=== PATIENT | female | born 1935 | race Caucasian/White ===

== ENCOUNTER 2018-02-12 11:20 | Emergency (ER) | payer MEDICARE ==
[~2018-02-12] VITALS: Ht 165.1 cm; Wt 59.0 kg
[~2018-02-12 11:20] MED LIST: ATOR20TA66 PO; CALCIUM PO; CARV-50 PO; FLUT1DIS INH; LISI2.5T2 PO; NITR0.4T48 SL; PANT40TA4 PO; TICA90TA PO
[2018-02-12 12:16] LABS: ALANINE AMINOTRANSFERASE 27 U/L (12-78); ALBUMIN 3.6 G/DL (3.4-5.0); ALKALINE PHOSPHATASE 55 IU/L (46-116); ANION GAP 12 (8-16); ASPARTATE AMINO TRANSFERASE 21 U/L (10-37); BILIRUBIN,TOTAL 0.6 MG/DL (0.1-1.0); BLOOD UREA NITROGEN 17 MG/DL (7-18); BUN/CREATININE RATIO 19.8 (6.6-38.0); CALCIUM 8.8 MG/DL (8.5-10.1); CHLORIDE 101 MMOL/L (99-107); CREATININE 0.86 MG/DL (0.40-0.90); GLUCOSE 102 MG/DL (70-104); POTASSIUM 4.2 MMOL/L (3.5-5.1); SODIUM 138 MMOL/L (135-145); TOTAL CARBON DIOXIDE 24.8 MMOL/L (24-32); TOTAL PROTEIN 7.1 G/DL (6.4-8.2); eGFR 63 ML/MIN
[2018-02-12 12:21] LABS: BASOPHILS % (AUTO) 0.3 % (0-1); EOSINOPHILS # (AUTO) 0.2 X10'3 (0-0.9); HEMATOCRIT 39.4 % (35.0-45.0); HEMOGLOBIN 12.9 g/dl (12.0-16.0); LYMPHOCYTES # (AUTO) 0.7 X10'3 (1.1-4.8); LYMPHOCYTES % (AUTO) 10.8 % (21-51); MEAN CORPUSCULAR HEMOGLOBIN 30.3 PG (27.0-31.0); MEAN CORPUSCULAR HGB CONC 32.8 % (33.0-36.5); MEAN CORPUSCULAR VOLUME 92.4 FL (78-98); MEAN PLATELET VOLUME 7.5 FL (7.4-10.4); MONOCYTES # (AUTO) 0.6 X10'3 (0-0.9); MONOCYTES % (AUTO) 8.5 % (2-12); NEUTROPHILS # (AUTO) 5.1 X10'3 (1.8-7.7); NEUTROPHILS % (AUTO) 77.4 % (42-75); PLATELET COUNT 192 X10'3 (140-440); RED BLOOD COUNT 4.27 X10'6 (4.20-5.60); RED CELL DISTRIBUTION WIDTH 15.5 % (11.5-14.5); WHITE BLOOD COUNT 6.6 X10'3 (4.5-11.0)
[2018-02-12] MEDS ORDERED: TAM75C PO (12:43)
[2018-02-12] MEDS ORDERED: LEVO750T21 PO (12:43)
[2018-02-12 13:02] VITALS: BP 129/56
== END 2018-02-12 13:05 | disposition home or self-care (01) ==
LOC: ER 11:20
DX: B34.9 Viral infection, unspecified (principal); J45.909 Unspecified asthma, uncomplicated; I25.10 Atherosclerotic heart disease of native coronary artery without angina pectoris; Z98.61 Coronary angioplasty status; Z90.49 Acquired absence of other specified parts of digestive tract; Z90.710 Acquired absence of both cervix and uterus; Z88.8 Allergy status to other drugs, medicaments and biological substances; Z79.2 Long term (current) use of antibiotics; Z79.899 Other long term (current) drug therapy
CPT/HCPCS: 36415; 71045; 80053; 83605; 84484; 85025; 87040; 93005; 99284

== ENCOUNTER 2018-03-03 10:03 | Outpatient (CLI) | payer MEDICARE ==
[~2018-03-03] VITALS: Ht 165.1 cm; Wt 69.4 kg
[~2018-03-03 10:03] MED LIST changes: +TAM75C PO
[2018-03-03 12:04] LABS: BASOPHILS % (AUTO) 0.8 % (0-1); EOSINOPHILS # (AUTO) 0.3 X10'3 (0-0.9); EOSINOPHILS % (AUTO) 6.8 % (0-6); LYMPHOCYTES # (AUTO) 0.9 X10'3 (1.1-4.8); LYMPHOCYTES % (AUTO) 18.5 % (21-51); MEAN CORPUSCULAR HGB CONC 32.3 % (33.0-36.5); MONOCYTES # (AUTO) 0.4 X10'3 (0-0.9); MONOCYTES % (AUTO) 7.3 % (2-12); NEUTROPHILS # (AUTO) 3.5 X10'3 (1.8-7.7); NEUTROPHILS % (AUTO) 66.6 % (42-75); PRE OP HEMATOCRIT 38.5 % (35.0-45.0); PRE OP HEMOGLOBIN 12.4 g/dL (12.0-16.0); PRE OP PLATELET COUNT 247 X10'3 (140-440); RED BLOOD COUNT 4.14 X10'6 (4.20-5.60); RED CELL DISTRIBUTION WIDTH 14.3 % (11.5-14.5)
[2018-03-03 12:07] LABS: PRE OP PROTIME 9.8 SECONDS (9.0-12.0)
[2018-03-03] MEDS ORDERED: [UNRECOGNIZED DRUG - REMARK] PO (12:08)
[2018-03-03] MEDS ORDERED: ATOR20TA PO (12:08)
[2018-03-03] MEDS ORDERED: ASPI-147 PO (12:08)
[2018-03-03] MEDS ORDERED: FURO-150 PO (12:08)
[2018-03-03] MEDS ORDERED: ESTR0.6261 PO (12:08)
[2018-03-03] MEDS ORDERED: ISOS30TA6 PO (12:08)
[2018-03-03] MEDS ORDERED: TICA60TA PO (12:08)
[2018-03-03] MEDS ORDERED: PANT-47 PO (12:08)
[2018-03-03] MEDS ORDERED: MAGN500C16 PO (12:08)
[2018-03-03] MEDS ORDERED: ASPI-611 PO (12:08)
[2018-03-03 12:17] LABS: ALBUMIN 3.6 G/DL (3.4-5.0); ALBUMIN/GLOBULIN RATIO 1.1 (1.1-1.5); ALKALINE PHOSPHATASE 50 IU/L (46-116); BLOOD UREA NITROGEN 19 MG/DL (7-18); CALCIUM 8.7 MG/DL (8.5-10.1); CHLORIDE 105 MMOL/L (99-107); CREATININE 0.95 MG/DL (0.40-0.90); PRE OP ALT 25 U/L (30-65); PRE OP ANION GAP 8 (8-16); PRE OP AST 16 U/L (10-37); PRE OP BILIRUB, TOTAL 0.6 MG/DL (0.0-1.0); PRE OP GLUCOSE 95 MG/DL (70-104); PRE OP POTASSIUM 4.1 MMOL/L (3.4-5.1); PRE OP SODIUM 140 MMOL/L (135-145); TOTAL CARBON DIOXIDE 26.7 MMOL/L (24-32); eGFR 56 ML/MIN
[2018-03-09] MEDS ORDERED: ringers solution, lacted 1,000 ML IV SCH (05:00)
[2018-03-09] MEDS ORDERED: VANCOMYCIN INJ 1000 MG in NORMAL SALINE 250ml IV.SOLN IV ONE (05:30)
[2018-03-09] MEDS ORDERED: cefazolin/dext.iso 2gm/100 ML IV ONE (05:30)
[2018-03-09] MEDS ORDERED: DOCUMENT DATE & TIME OF BETA-BLOCKER PO ONE (05:30)
[2018-03-09] MEDS ORDERED: famotidine 20mg tablet PO ONE (05:30)
[2018-03-09] MEDS ORDERED: tranexamic acid inj. 1,000 MG in normal saline 100 ML IV ONE (05:30)
[2018-03-09] MEDS ORDERED: LIDOcaine 1% (10mg/ml)w/preservative injection 20ml MDV ONE (14:17)
[2018-03-09] MEDS ORDERED: iohexol 350 MG/ML 50ML vial IV ONE (14:17)
[2018-03-09] MEDS ORDERED: nitroGLYCERIN-Tridil 50MG/D5W 250 ML IV ONE (14:17)
[2018-03-09] MEDS ORDERED: heparin 1,000unit/ml 10ml vial 10 ML ONE (14:17)
[2018-03-09] MEDS ORDERED: midazolam 2 mg/2 ml injection ONE (14:17)
[2018-03-09] MEDS ORDERED: iohexol 350 MG/1 ML 200ml bottle ONE (14:17)
[2018-03-09] MEDS ORDERED: fentaNYL/PF 50MCG/1 ML 2ML syringe ONE (14:17)
[2018-03-10] MEDS ORDERED: LISI-642 PO (14:47)
[2018-03-10] MEDS ORDERED: CARV-50 PO (14:47)
[2018-03-10] MEDS ORDERED: ASPI-1265 PO (14:47)
[2018-03-10] MEDS ORDERED: ATOR20TA66 PO (14:47)
[2018-03-10] MEDS ORDERED: CLOP75TA33 PO (14:47)
[2018-03-10] MEDS ORDERED: NITR0.4T51 SL (15:43)
== END 2018-03-03 23:59 | disposition home or self-care (01) ==
LOC: PRE-OP 10:03 → EDSTATUS 03-09 11:15
PROVIDERS: ATTEND Orthopaedic Surgery
DX: Z01.818 Encounter for other preprocedural examination (principal); M16.12 Unilateral primary osteoarthritis, left hip
CPT/HCPCS: 36415; 80053; 85025; 85610; 85730; 86885; 86900; 86901; 86920; 87070; J0690; J1644; J2001; J2250; J3010; J3370; J3490; J7030; J7120; Q9967

== ENCOUNTER 2018-03-08 11:25 | Inpatient (IN) | payer MEDICARE | END 2018-03-10 17:18 | disposition home or self-care (01) | LOC: ER 11:25 → ED HOLD 13:07 → MED 3N 15:45 | PROC: 4A023N7 Measurement of Cardiac Sampling and Pressure, Left Heart, Percutaneous Approach (ICD-10-PCS; principal; ~2018-03-08) | DX: I21.4 Non-ST elevation (NSTEMI) myocardial infarction (principal); K29.70 Gastritis, unspecified, without bleeding ==

== ENCOUNTER 2019-03-02 14:35 | Emergency (ER) | payer MEDICARE ==
[~2019-03-02] VITALS: Ht 167.6 cm; Wt 77.0 kg
[~2019-03-02 14:35] MED LIST changes: +ALBU8.5H8 INH; +ANTIDIARRHEAL PO; -ATOR20TA66 PO; -CALCIUM PO; +CLOP75TA15 PO; +ESTR0.6261 PO; -FLUT1DIS INH; +FLUT1DIS4 INH; +FURO-150 PO; +HYDR-4383 PO; +ISOS30TA6 PO; +LIDOcaine 1% W/epiNEPHrine 1:100,000 20ml vial ONE; -LISI2.5T2 PO; +LOSA25TA96 PO; -NITR0.4T48 SL; +PANT-47 PO; -PANT40TA4 PO; -TAM75C PO; -TICA90TA PO; +TRAZ-256 PO
--- NOTE | 2019-03-02 17:45 | NUR ---
PT WAS CO LEAVING AMA, PT WANT TO HAVE CT READ AND GO HOME. PT BROUGHT BACK TO FAST TRACK. PT IS CURRENTLY ON PLAVIX AND ASA 81 MG DAILY.
[2019-03-02] MEDS ORDERED: carVEDilol 12.5mg tablet PO ONE (18:50)
--- NOTE | 2019-03-02 19:03 | NUR ---
Patient's lac was injected with lidocaine by DAVID Thornton. Patient tolerated well. Patient given Coreg 12.5 medication for HTN. Patient did not take her morning med because she states it makes her fuzzy. Patient is AAOX4
[2019-03-02 19:22] VITALS: BP 198/73
== END 2019-03-02 19:25 | disposition home or self-care (01) ==
LOC: ER 14:35
DX: S01.01XA Laceration without foreign body of scalp, initial encounter (principal); I25.10 Atherosclerotic heart disease of native coronary artery without angina pectoris; J45.909 Unspecified asthma, uncomplicated; Z98.61 Coronary angioplasty status; Z90.49 Acquired absence of other specified parts of digestive tract; Z90.710 Acquired absence of both cervix and uterus; Z88.8 Allergy status to other drugs, medicaments and biological substances; Z79.899 Other long term (current) drug therapy; W22.8XXA Striking against or struck by other objects, initial encounter; Y93.89 Activity, other specified; Y92.89 Other specified places as the place of occurrence of the external cause; Y99.8 Other external cause status
CPT/HCPCS: 12001; 70450; 99284

== ENCOUNTER 2019-09-13 13:20 | Outpatient (CLI) | payer MEDICARE ==
[~2019-09-13 13:20] MED LIST changes: -ANTIDIARRHEAL PO; +ASPI-611 PO; -HYDR-4383 PO; -LIDOcaine 1% W/epiNEPHrine 1:100,000 20ml vial ONE; +MAGN500C16 PO
[2019-09-13] MEDS ORDERED: LIDOcaine 2% 5ml jelly ONE (14:18)
== END 2019-09-13 15:20 | disposition home or self-care (01) ==
LOC: EDSTATUS 13:20 → WOUND CARE 13:20
PROVIDERS: ATTEND Nurse Practitioner Family
DX: L97.212 Non-pressure chronic ulcer of right calf with fat layer exposed (principal); I25.10 Atherosclerotic heart disease of native coronary artery without angina pectoris; K21.9 Gastro-esophageal reflux disease without esophagitis; M19.90 Unspecified osteoarthritis, unspecified site; H26.9 Unspecified cataract; I10 Essential (primary) hypertension; J45.909 Unspecified asthma, uncomplicated; Z79.02 Long term (current) use of antithrombotics/antiplatelets; Z79.82 Long term (current) use of aspirin; Z79.51 Long term (current) use of inhaled steroids; Z79.899 Other long term (current) drug therapy; Z95.5 Presence of coronary angioplasty implant and graft; Z96.642 Presence of left artificial hip joint; Z87.891 Personal history of nicotine dependence; Z86.11 Personal history of tuberculosis; Z90.710 Acquired absence of both cervix and uterus; Z90.49 Acquired absence of other specified parts of digestive tract
CPT/HCPCS: 97606

== ENCOUNTER 2019-10-18 08:53 | Day surgery (SDC) | payer MEDICARE ==
[2019-10-18] MEDS ORDERED: LIDOcaine 2% 5ml jelly ONE ×2 (09:10)
== END 2019-10-18 10:40 | disposition home or self-care (01) ==
LOC: WOUND CARE 08:53
PROVIDERS: ATTEND Nurse Practitioner
DX: S81.801D Unspecified open wound, right lower leg, subsequent encounter (principal); L97.212 Non-pressure chronic ulcer of right calf with fat layer exposed; I25.10 Atherosclerotic heart disease of native coronary artery without angina pectoris; K21.9 Gastro-esophageal reflux disease without esophagitis; M19.90 Unspecified osteoarthritis, unspecified site; H26.9 Unspecified cataract; I10 Essential (primary) hypertension; J45.909 Unspecified asthma, uncomplicated; Z79.02 Long term (current) use of antithrombotics/antiplatelets; Z79.82 Long term (current) use of aspirin; Z79.51 Long term (current) use of inhaled steroids; Z79.899 Other long term (current) drug therapy; Z95.5 Presence of coronary angioplasty implant and graft; Z96.642 Presence of left artificial hip joint; Z87.891 Personal history of nicotine dependence; Z86.11 Personal history of tuberculosis; Z90.710 Acquired absence of both cervix and uterus; Z90.49 Acquired absence of other specified parts of digestive tract; X58.XXXD Exposure to other specified factors, subsequent encounter
CPT/HCPCS: 15271; 15272; Q4101

== ENCOUNTER 2019-11-03 14:23 | Day surgery (SDC) | payer MEDICARE ==
[~2019-11-03 14:23] MED LIST changes: +FLAX10007 PO
[2019-11-03] MEDS ORDERED: LIDOcaine 2% 5ml jelly ONE ×2 (14:42)
== END 2019-11-03 15:18 | disposition home or self-care (01) ==
LOC: WOUND CARE 14:23
PROVIDERS: ATTEND Nurse Practitioner
DX: S81.801D Unspecified open wound, right lower leg, subsequent encounter (principal); I83.012 Varicose veins of right lower extremity with ulcer of calf; L97.212 Non-pressure chronic ulcer of right calf with fat layer exposed; I25.10 Atherosclerotic heart disease of native coronary artery without angina pectoris; K21.9 Gastro-esophageal reflux disease without esophagitis; M19.90 Unspecified osteoarthritis, unspecified site; H26.9 Unspecified cataract; I10 Essential (primary) hypertension; J45.909 Unspecified asthma, uncomplicated; Z79.02 Long term (current) use of antithrombotics/antiplatelets; Z79.82 Long term (current) use of aspirin; Z79.51 Long term (current) use of inhaled steroids; Z79.899 Other long term (current) drug therapy; Z95.5 Presence of coronary angioplasty implant and graft; Z96.642 Presence of left artificial hip joint; Z87.891 Personal history of nicotine dependence; Z86.11 Personal history of tuberculosis; Z90.710 Acquired absence of both cervix and uterus; Z90.49 Acquired absence of other specified parts of digestive tract; W22.8XXD Striking against or struck by other objects, subsequent encounter
CPT/HCPCS: 97597; 97598

== ENCOUNTER 2019-11-10 09:54 | Day surgery (SDC) | payer MEDICARE ==
[~2019-11-10] VITALS: Ht 165.1 cm; Wt 73.8 kg
[2019-11-10] VITALS (15 sets, daily range): BP systolic 145–174; BP diastolic 62–81
[~2019-11-10 09:54] MED LIST changes: +BUPIVAcaine/PF 2.5 mg/ml (0.25%) 30ml vial ONE; +DOCUMENT DATE & TIME OF BETA-BLOCKER PO ONE; +cefazolin/dext.iso 2gm/50ml 50 ML IV ONE; +famotidine 20mg tablet PO ONE; +ringers solution, lacted 1,000 ML IV SCH
[2019-11-10 11:01] LABS: ISTAT CREATININE 0.8 mg/dL (0.6-1.1); ISTAT HGB 13.3 g/dl (12.0-16.0); ISTAT IONIZED CALCIUM 1.31 mmol/L (1.03-1.32); ISTAT K 4.3 mmol/L (3.5-5.1); POC BUN/CREATININE RATIO 18.8 (6.6-38.0)
[2019-11-10 11:01] LABS: CLARITY,URINE SLIGHTLY CLOUDY (Clear); COLOR,URINE YELLOW (Yellow); GLUCOSE, URINE NEGATIVE (Neg); KETONES,URINE NEGATIVE (Neg); LEUKOCYTE ESTERASE ,URINE SMALL (Neg); NITRITES, URINE NEGATIVE (Neg); OCCULT BLOOD,URINE SMALL (Neg); PH,URINE 5.5 (4.8-8.0); PROTEIN,URINE 30 mg/dl (Neg); UROBILINOGEN,URINE 0.2 E.U/dL (0.2-1.0)
[2019-11-10 11:10] LABS: UA COLLECTION TYPE NON-SPECIFIED
[2019-11-10 11:11] LABS: MUCUS STRANDS FEW /LPF (Neg); SQUAMOUS EPITHELIAL CELL,UR FEW /LPF (FEW)
[2019-11-10 11:12] LABS: BACTERIA,URINE 1+ /HPF (Neg); RBC,URINE 0-2 /HPF (0-2); WBC CLUMPS,URINE MANY /HPF (NEGATIVE); WBC,URINE TNTC /HPF (0-4)
--- NOTE | 2019-11-10 11:36 | NUR ---
Dr. Sousa aware of covid test being negative 15 days ago. Ok'd use of result. Reviewed current symptoms, patient negative for any signs of covid as well as she has avoided crowded areas and gatherings.
[2019-11-10] MEDS ORDERED: ciprofloxacin lact 400MG/200ML 200 ML IV ONE (11:55)
--- NOTE | 2019-11-10 12:27 | NUR ---
Dr. Grady notified of patient's positive urine, order received for cipro, given. At Dr. Grady's request, Jesusita in wound care contacted and she said she will contact the patient and follow up on the urine culture Friday.
[2019-11-10] MEDS ORDERED: NITR0.4T48 SL (12:31)
[2019-11-10] MEDS ORDERED: NITR0.4T51 SL (12:35)
[2019-11-10] MEDS ORDERED: mineral oil 10ml sterile, topical TP ONE (13:35)
[2019-11-10] MEDS ORDERED: LIDOcaine 1% w/epiNEPHrine 1:200,000 30ml vial ONE (13:49)
[2019-11-10] MEDS ORDERED: sevoflurane 250ml liquid IH ONE (14:12)
[2019-11-10] MEDS ORDERED: midazolam 2 mg/2 ml injection ONE (14:20)
[2019-11-10] MEDS ORDERED: fentaNYL/PF 50MCG/1 ML 2ML syringe ONE (14:20)
[2019-11-10] MEDS ORDERED: dexamethasone sod phosphate 4mg/ml inj. ONE (14:33)
[2019-11-10] MEDS ORDERED: LIDOcaine 2% (20mg/ml) 5ml vial ONE (14:33)
[2019-11-10] MEDS ORDERED: ondansetron/PF 4mg/2ml inj ONE (14:34)
[2019-11-10] MEDS ORDERED: propofol inj 20 ML IV ONE (14:34)
[2019-11-10] MEDS ORDERED: ringers solution, lacted 1,000 ML IV SCH (15:28)
--- NOTE | 2019-11-10 15:28 | NUR ---
Received from OR via [facility], accompanied by Anesthesiologist Shane and report given by Anesthesiolgist. All VS WNL and sats 100% at 10L. Wound vac to right lower leg with good suction, and left anterior thigh with gauze over dressing with tegarderm. All CDI. 20G IVF LR running 100cc/hr.
[2019-11-10] MEDS ORDERED: meperidine/PF 25mg/ml syringe IV PRN ×3 (15:30)
[2019-11-10] MEDS ORDERED: morphine 2 MG/ML inj. syringe IV PRN (15:30)
[2019-11-10] MEDS ORDERED: proCHLORperazine 10 MG/2 ml inj IV PRN (15:30)
[2019-11-10] MEDS ORDERED: morphine 4 MG/ML inj SYRINge IV PRN (15:30)
[2019-11-10] MEDS ORDERED: ondansetron/PF 4mg/2ml inj IV PRN (15:30)
[2019-11-10] MEDS ORDERED: acetaminophen 1,000mg/100ml IV 100 ML IV ONE (15:55)
[2019-11-10] MEDS ORDERED: labetalol 20mg/4ml (5mg/ml) syringe IV ONE (16:15)
--- NOTE | 2019-11-10 16:38 | NUR ---
Pt occasionally drops sats from 98% to 88%, but no other changes in symptoms or LOC. Reminded to take deep breaths frequently and given extensive eduction on respiratory care including the use of IS. Pt verbalized understanding of all instructions. Will continue to encourage pulmonary activity.
--- NOTE | 2019-11-10 17:20 | NUR ---
Pt greatly improved on consistently keeping sats above 95%, fully understands importance of using IS and is doing so frequently. Pt has ambulated, tolerated fluids and food, getting dressed without any issues or changes in VS.
--- NOTE | 2019-11-10 17:38 | NUR ---
Pt discharged in her own belongings/clothing, to her vehicle without incident. IV DC'd. All dressings and wound vac remain CDI and good seal. Pt and family received extensive education on DC instructions r/t wounds, dressings, wound vac and materials, respiratory care, pain medications and what to do if complications arise. I also explained that the urine culture results would be followed up with by wound care on Friday. Appointment already made for patient to see wound care. All other questions answered.
== END 2019-11-10 17:38 | disposition home or self-care (01) ==
LOC: PAS 09:54
PROVIDERS: ATTEND Surgery
DX: T81.89XA Other complications of procedures, not elsewhere classified, initial encounter (principal); I25.10 Atherosclerotic heart disease of native coronary artery without angina pectoris; K21.9 Gastro-esophageal reflux disease without esophagitis; M19.90 Unspecified osteoarthritis, unspecified site; Z87.891 Personal history of nicotine dependence; Z72.89 Other problems related to lifestyle; Z86.11 Personal history of tuberculosis; Z96.642 Presence of left artificial hip joint; Z88.8 Allergy status to other drugs, medicaments and biological substances; Z88.1 Allergy status to other antibiotic agents; Z79.899 Other long term (current) drug therapy; Z82.49 Family history of ischemic heart disease and other diseases of the circulatory system; Z82.3 Family history of stroke; Z83.6 Family history of other diseases of the respiratory system; Y83.8 Other surgical procedures as the cause of abnormal reaction of the patient, or of later complication, without mention of misadventure at the time of the procedure; Y92.89 Other specified places as the place of occurrence of the external cause
CPT/HCPCS: 15100; 80047; 81001; 87077; 87088; 87186; A6223; J0131; J0744; J1100; J2001; J2175; J2250; J2405; J2704; J3010; J3490; A4618; A6258; A6449; A6550; A7000; J7120

== ENCOUNTER 2019-11-18 10:45 | Outpatient (CLI) | payer MEDICARE ==
[~2019-11-18 10:45] MED LIST changes: -BUPIVAcaine/PF 2.5 mg/ml (0.25%) 30ml vial ONE; -DOCUMENT DATE & TIME OF BETA-BLOCKER PO ONE; +NITR0.4T48 SL; +NITR0.4T51 SL; -cefazolin/dext.iso 2gm/50ml 50 ML IV ONE; -famotidine 20mg tablet PO ONE; -ringers solution, lacted 1,000 ML IV SCH
== END 2019-11-18 12:30 | disposition home or self-care (01) ==
LOC: WOUND CARE 10:45
PROVIDERS: ATTEND Nurse Practitioner
DX: T86.828 Other complications of skin graft (allograft) (autograft) (principal); T81.89XD Other complications of procedures, not elsewhere classified, subsequent encounter; I83.012 Varicose veins of right lower extremity with ulcer of calf; L97.212 Non-pressure chronic ulcer of right calf with fat layer exposed; I25.10 Atherosclerotic heart disease of native coronary artery without angina pectoris; K21.9 Gastro-esophageal reflux disease without esophagitis; M19.90 Unspecified osteoarthritis, unspecified site; H26.9 Unspecified cataract; I10 Essential (primary) hypertension; J45.909 Unspecified asthma, uncomplicated; Z79.02 Long term (current) use of antithrombotics/antiplatelets; Z79.82 Long term (current) use of aspirin; Z79.51 Long term (current) use of inhaled steroids; Z79.899 Other long term (current) drug therapy; Z95.5 Presence of coronary angioplasty implant and graft; Z96.642 Presence of left artificial hip joint; Z87.891 Personal history of nicotine dependence; Z86.11 Personal history of tuberculosis; Z90.710 Acquired absence of both cervix and uterus; Z90.49 Acquired absence of other specified parts of digestive tract; Y83.2 Surgical operation with anastomosis, bypass or graft as the cause of abnormal reaction of the patient, or of later complication, without mention of misadventure at the time of the procedure; Y83.8 Other surgical procedures as the cause of abnormal reaction of the patient, or of later complication, without mention of misadventure at the time of the procedure
CPT/HCPCS: 97605

== ENCOUNTER 2019-11-23 09:05 | Outpatient (CLI) | payer MEDICARE | END 2019-11-23 10:13 | disposition home or self-care (01) | LOC: WOUND CARE 09:05 | PROVIDERS: ATTEND Nurse Practitioner | DX: T86.828 Other complications of skin graft (allograft) (autograft) (principal); T81.89XD Other complications of procedures, not elsewhere classified, subsequent encounter; I83.012 Varicose veins of right lower extremity with ulcer of calf; L97.212 Non-pressure chronic ulcer of right calf with fat layer exposed; I25.10 Atherosclerotic heart disease of native coronary artery without angina pectoris; K21.9 Gastro-esophageal reflux disease without esophagitis; M19.90 Unspecified osteoarthritis, unspecified site; H26.9 Unspecified cataract; I10 Essential (primary) hypertension; J45.909 Unspecified asthma, uncomplicated; Z79.02 Long term (current) use of antithrombotics/antiplatelets; Z79.82 Long term (current) use of aspirin; Z79.51 Long term (current) use of inhaled steroids; Z79.899 Other long term (current) drug therapy; Z95.5 Presence of coronary angioplasty implant and graft; Z96.642 Presence of left artificial hip joint; Z87.891 Personal history of nicotine dependence; Z86.11 Personal history of tuberculosis; Z90.710 Acquired absence of both cervix and uterus; Z90.49 Acquired absence of other specified parts of digestive tract; Y83.2 Surgical operation with anastomosis, bypass or graft as the cause of abnormal reaction of the patient, or of later complication, without mention of misadventure at the time of the procedure; Y83.8 Other surgical procedures as the cause of abnormal reaction of the patient, or of later complication, without mention of misadventure at the time of the procedure | CPT/HCPCS: G0463 ==

== ENCOUNTER 2019-11-26 10:30 | Day surgery (SDC) | payer MEDICARE | END 2019-11-26 12:00 | disposition home or self-care (01) | LOC: WOUND CARE 10:30 | PROVIDERS: ATTEND Nurse Practitioner | DX: T81.89XD Other complications of procedures, not elsewhere classified, subsequent encounter (principal); I83.012 Varicose veins of right lower extremity with ulcer of calf; L97.212 Non-pressure chronic ulcer of right calf with fat layer exposed; I25.10 Atherosclerotic heart disease of native coronary artery without angina pectoris; K21.9 Gastro-esophageal reflux disease without esophagitis; M19.90 Unspecified osteoarthritis, unspecified site; H26.9 Unspecified cataract; I10 Essential (primary) hypertension; J45.909 Unspecified asthma, uncomplicated; Z79.02 Long term (current) use of antithrombotics/antiplatelets; Z79.82 Long term (current) use of aspirin; Z79.51 Long term (current) use of inhaled steroids; Z79.899 Other long term (current) drug therapy; Z95.5 Presence of coronary angioplasty implant and graft; Z96.642 Presence of left artificial hip joint; Z87.891 Personal history of nicotine dependence; Z86.11 Personal history of tuberculosis; Z90.710 Acquired absence of both cervix and uterus; Z90.49 Acquired absence of other specified parts of digestive tract; Y83.8 Other surgical procedures as the cause of abnormal reaction of the patient, or of later complication, without mention of misadventure at the time of the procedure | CPT/HCPCS: G0463 ==

== ENCOUNTER 2019-11-29 10:19 | Day surgery (SDC) | payer MEDICARE | END 2019-11-29 11:47 | disposition home or self-care (01) | LOC: WOUND CARE 10:19 | PROVIDERS: ATTEND Nurse Practitioner Family | DX: T81.89XD Other complications of procedures, not elsewhere classified, subsequent encounter (principal); I83.012 Varicose veins of right lower extremity with ulcer of calf; L97.212 Non-pressure chronic ulcer of right calf with fat layer exposed; I25.10 Atherosclerotic heart disease of native coronary artery without angina pectoris; K21.9 Gastro-esophageal reflux disease without esophagitis; M19.90 Unspecified osteoarthritis, unspecified site; H26.9 Unspecified cataract; I10 Essential (primary) hypertension; J45.909 Unspecified asthma, uncomplicated; Z79.02 Long term (current) use of antithrombotics/antiplatelets; Z79.82 Long term (current) use of aspirin; Z79.51 Long term (current) use of inhaled steroids; Z79.899 Other long term (current) drug therapy; Z95.5 Presence of coronary angioplasty implant and graft; Z96.642 Presence of left artificial hip joint; Z87.891 Personal history of nicotine dependence; Z86.11 Personal history of tuberculosis; Z90.710 Acquired absence of both cervix and uterus; Z90.49 Acquired absence of other specified parts of digestive tract; Y83.8 Other surgical procedures as the cause of abnormal reaction of the patient, or of later complication, without mention of misadventure at the time of the procedure | CPT/HCPCS: G0463 ==

== ENCOUNTER 2019-12-08 10:57 | Outpatient (CLI) | payer MEDICARE | END 2019-12-08 23:59 | disposition home or self-care (01) | LOC: WOUND CARE 10:57 | PROVIDERS: ATTEND Nurse Practitioner | DX: T81.89XD Other complications of procedures, not elsewhere classified, subsequent encounter (principal); I83.012 Varicose veins of right lower extremity with ulcer of calf; L97.212 Non-pressure chronic ulcer of right calf with fat layer exposed; I25.10 Atherosclerotic heart disease of native coronary artery without angina pectoris; K21.9 Gastro-esophageal reflux disease without esophagitis; M19.90 Unspecified osteoarthritis, unspecified site; H26.9 Unspecified cataract; I10 Essential (primary) hypertension; J45.909 Unspecified asthma, uncomplicated; Z79.02 Long term (current) use of antithrombotics/antiplatelets; Z79.82 Long term (current) use of aspirin; Z79.51 Long term (current) use of inhaled steroids; Z79.899 Other long term (current) drug therapy; Z95.5 Presence of coronary angioplasty implant and graft; Z96.642 Presence of left artificial hip joint; Z87.891 Personal history of nicotine dependence; Z86.11 Personal history of tuberculosis; Z90.710 Acquired absence of both cervix and uterus; Z90.49 Acquired absence of other specified parts of digestive tract; Y83.8 Other surgical procedures as the cause of abnormal reaction of the patient, or of later complication, without mention of misadventure at the time of the procedure | CPT/HCPCS: 97597 ==

== ENCOUNTER 2019-12-21 10:56 | Outpatient (CLI) | payer MEDICARE ==
[2019-12-21] MEDS ORDERED: LIDOcaine 2% 5ml jelly ONE ×2 (11:18→11:35)
== END 2019-12-21 23:59 | disposition home or self-care (01) ==
LOC: WOUND CARE 10:56
PROVIDERS: ATTEND Nurse Practitioner
DX: T81.89XD Other complications of procedures, not elsewhere classified, subsequent encounter (principal); I83.012 Varicose veins of right lower extremity with ulcer of calf; L97.212 Non-pressure chronic ulcer of right calf with fat layer exposed; I25.10 Atherosclerotic heart disease of native coronary artery without angina pectoris; K21.9 Gastro-esophageal reflux disease without esophagitis; M19.90 Unspecified osteoarthritis, unspecified site; H26.9 Unspecified cataract; I10 Essential (primary) hypertension; J45.909 Unspecified asthma, uncomplicated; Z79.02 Long term (current) use of antithrombotics/antiplatelets; Z79.82 Long term (current) use of aspirin; Z79.51 Long term (current) use of inhaled steroids; Z79.899 Other long term (current) drug therapy; Z95.5 Presence of coronary angioplasty implant and graft; Z96.642 Presence of left artificial hip joint; Z87.891 Personal history of nicotine dependence; Z86.11 Personal history of tuberculosis; Z90.710 Acquired absence of both cervix and uterus; Z79.01 Long term (current) use of anticoagulants; Z90.49 Acquired absence of other specified parts of digestive tract; Y83.8 Other surgical procedures as the cause of abnormal reaction of the patient, or of later complication, without mention of misadventure at the time of the procedure
CPT/HCPCS: 97597; 97598

== ENCOUNTER 2019-12-28 11:18 | Outpatient (CLI) | payer MEDICARE | END 2019-12-28 23:59 | disposition home or self-care (01) | LOC: WOUND CARE 11:18 | PROVIDERS: ATTEND Nurse Practitioner | DX: T81.89XD Other complications of procedures, not elsewhere classified, subsequent encounter (principal); I83.012 Varicose veins of right lower extremity with ulcer of calf; L97.212 Non-pressure chronic ulcer of right calf with fat layer exposed; I25.10 Atherosclerotic heart disease of native coronary artery without angina pectoris; K21.9 Gastro-esophageal reflux disease without esophagitis; M19.90 Unspecified osteoarthritis, unspecified site; H26.9 Unspecified cataract; I10 Essential (primary) hypertension; J45.909 Unspecified asthma, uncomplicated; Z79.02 Long term (current) use of antithrombotics/antiplatelets; Z79.82 Long term (current) use of aspirin; Z79.51 Long term (current) use of inhaled steroids; Z79.899 Other long term (current) drug therapy; Z95.5 Presence of coronary angioplasty implant and graft; Z96.642 Presence of left artificial hip joint; Z87.891 Personal history of nicotine dependence; Z86.11 Personal history of tuberculosis; Z90.710 Acquired absence of both cervix and uterus; Z79.01 Long term (current) use of anticoagulants; Z90.49 Acquired absence of other specified parts of digestive tract; Y83.8 Other surgical procedures as the cause of abnormal reaction of the patient, or of later complication, without mention of misadventure at the time of the procedure | CPT/HCPCS: 97597 ==

== ENCOUNTER 2020-01-04 11:00 | Outpatient (CLI) | payer MEDICARE ==
[2020-01-04] MEDS ORDERED: LIDOcaine 2% 5ml jelly ONE (11:45)
== END 2020-01-04 23:59 | disposition home or self-care (01) ==
LOC: EDSTATUS 11:00 → WOUND CARE 11:00
PROVIDERS: ATTEND Nurse Practitioner
DX: T81.89XD Other complications of procedures, not elsewhere classified, subsequent encounter (principal); I83.012 Varicose veins of right lower extremity with ulcer of calf; L97.212 Non-pressure chronic ulcer of right calf with fat layer exposed; I25.10 Atherosclerotic heart disease of native coronary artery without angina pectoris; K21.9 Gastro-esophageal reflux disease without esophagitis; M19.90 Unspecified osteoarthritis, unspecified site; H26.9 Unspecified cataract; I10 Essential (primary) hypertension; J45.909 Unspecified asthma, uncomplicated; Z79.02 Long term (current) use of antithrombotics/antiplatelets; Z79.82 Long term (current) use of aspirin; Z79.51 Long term (current) use of inhaled steroids; Z79.899 Other long term (current) drug therapy; Z95.5 Presence of coronary angioplasty implant and graft; Z96.642 Presence of left artificial hip joint; Z87.891 Personal history of nicotine dependence; Z90.710 Acquired absence of both cervix and uterus; Z86.11 Personal history of tuberculosis; Z79.01 Long term (current) use of anticoagulants; Z90.49 Acquired absence of other specified parts of digestive tract; Y83.8 Other surgical procedures as the cause of abnormal reaction of the patient, or of later complication, without mention of misadventure at the time of the procedure
CPT/HCPCS: 11042; 97597

== ENCOUNTER 2020-10-26 07:38 | Outpatient (CLI) | payer MEDICARE ==
[2020-10-26] VITALS (20 sets, daily range): BP systolic 65–140; BP diastolic 36–74
[~2020-10-26 07:38] MED LIST changes: +ALBU8.5H17 INH; -ALBU8.5H8 INH; -ISOS30TA6 PO; +ISOS30TA84 PO
== END 2020-10-26 23:59 | disposition home or self-care (01) ==
LOC: CARD DIAG 07:38
PROVIDERS: ATTEND Internal Medicine Cardiovascular Disease
DX: R42 Dizziness and giddiness (principal)
CPT/HCPCS: 93660

== ENCOUNTER 2021-05-26 18:01 | Emergency (ER) | payer MEDICARE ==
[~2021-05-26] VITALS: Ht 165.1 cm; Wt 70.0 kg
[~2021-05-26 18:01] MED LIST changes: -MAGN500C16 PO; +MAGN500C4 PO
[2021-05-26 18:19] VITALS: BP 198/88
[2021-05-26] MEDS ORDERED: LIDOcaine 1.5% w/epinephrine 1:200,000 5ml ampul IJ ONE (18:50)
[2021-05-26] MEDS ORDERED: LIDOCAINE 2% w/EPI 1:100:000 30mL injection MDV**cath lab 1 only SQ ONE (19:15)
== END 2021-05-26 20:17 | disposition home or self-care (01) ==
LOC: ER 18:02
DX: S81.811A Laceration without foreign body, right lower leg, initial encounter (principal); I25.10 Atherosclerotic heart disease of native coronary artery without angina pectoris; J45.909 Unspecified asthma, uncomplicated; Z95.5 Presence of coronary angioplasty implant and graft; Z90.49 Acquired absence of other specified parts of digestive tract; Z90.710 Acquired absence of both cervix and uterus; Z88.1 Allergy status to other antibiotic agents; Z88.8 Allergy status to other drugs, medicaments and biological substances; Z79.82 Long term (current) use of aspirin; Z79.899 Other long term (current) drug therapy; Z79.01 Long term (current) use of anticoagulants; W22.8XXA Striking against or struck by other objects, initial encounter; Y93.89 Activity, other specified; Y92.89 Other specified places as the place of occurrence of the external cause; Y99.8 Other external cause status
CPT/HCPCS: 99281

== ENCOUNTER 2022-06-11 09:29 | Outpatient (CLI) | payer MEDICARE | END 2022-06-11 23:59 | disposition home or self-care (01) | LOC: CARD DIAG 09:29 | PROVIDERS: ATTEND Internal Medicine Cardiovascular Disease | DX: I08.1 Rheumatic disorders of both mitral and tricuspid valves (principal); R06.02 Shortness of breath; I50.30 Unspecified diastolic (congestive) heart failure | CPT/HCPCS: 93306 ==